=== PATIENT | male | born 1935 | race Caucasian/White ===

== ENCOUNTER 2016-03-27 13:26 | Emergency (ER) | payer OTHER ==
[~2016-03-27] VITALS: Ht 172.7 cm; Wt 113.0 kg
[~2016-03-27 13:26] MED LIST: BISOPROLOL-HCT1 EAC2 PO; FLOMAX0.4 MG PO; LO-DOSE ASPIRIN81 M1 PO; PROSCAR5 MG PO; ZESTRIL5 MG PO
[2016-03-27 14:13] LABS: ADD MIUA? YES; BILIRUBIN NEGATIVE; BLOOD LARGE; COLOR YELLOW ((YELLOW)); GLUCOSE (STRIP) NEGATIVE; KETONES NEGATIVE; LEUKOCYTES NEGATIVE; NITRITE NEGATIVE; PH, URINE 5.5 (5-8); PROTEIN (STRIP) NEGATIVE; SPECIFIC GRAVITY 1.014 (1.000-1.030); UROBILINOGEN 0.2 MG/DL (0.2-1.0)
[2016-03-27 14:32] LABS: BACTERIA NONE SEEN; CASTS NONE SEEN /LPF; CRYSTALS NONE SEEN; EPITHELIAL CELLS RARE; MUCUS NONE SEEN; RED BLOOD CELLS 30-40 /HPF (0-5); UCUL ADDED? NO; WHITE BLOOD CELLS 0-5 /HPF (0-5)
[2016-03-27 14:35] LABS: HEMATOCRIT 46.9 % (38.0-50.0); MCH 30.9 PG (29.0-34.0); MCHC 34.3 G/DL (30.0-36.0); MEAN PLAT.VOLUME 8.9 uM^3 (9.0-12.4); PLATELET COUNT 235 K/uL (156-360); RBC DIS.WIDTH-CV 12.8 % (11.8-14.6); RBC DIS.WIDTH-SD 42.1 % (39-53); RED BLOOD COUNT 5.21 M/uL (4.00-5.50)
[2016-03-27 14:37] LABS: WHITE BLOOD COUNT 12.3 K/uL (4.1-10.2)
[2016-03-27 14:43] LABS: CHLORIDE 104 mEq/L (99-109); POTASSIUM 4.8 mEq/L (3.7-5.4); SODIUM 136 mEq/L (136-147)
[2016-03-27 14:46] LABS: GLUCOSE 133 mg/dL (70-99)
[2016-03-27 14:47] LABS: ANION GAP 11 MEQ/L (2-14); TOTAL BILIRUBIN 0.6 mg/dL (0.0-1.0)
[2016-03-27 14:49] LABS: ALKALINE PHOSPHATASE 67 IU/L (3-129); GFR ESTIMATE (CALCULATED) > 59 mL/min/
[2016-03-27 14:50] LABS: UREA NITROGEN (BUN) 21 mg/dL (9-23)
[2016-03-27 15:22] VITALS: BP 115/61
== END 2016-03-27 15:39 | disposition home or self-care (01) ==
LOC: EME 13:26
PROVIDERS: Emergency Medicine
DX: R33.9 Retention of urine, unspecified (principal); C61 Malignant neoplasm of prostate; I10 Essential (primary) hypertension; Z79.82 Long term (current) use of aspirin; Z87.442 Personal history of urinary calculi; Z88.4 Allergy status to anesthetic agent; Z88.6 Allergy status to analgesic agent
CPT/HCPCS: 80053; 81003; 85027; 99281; 99284

== ENCOUNTER 2016-04-04 23:14 | Emergency (ER) | payer OTHER ==
[~2016-04-04] VITALS: Ht 177.8 cm; Wt 112.4 kg
[2016-04-05 00:18] LABS: ADD MIUA? YES; BILIRUBIN NEGATIVE; BLOOD MODERATE; COLOR YELLOW ((YELLOW)); GLUCOSE (STRIP) NEGATIVE; KETONES NEGATIVE; LEUKOCYTES NEGATIVE; NITRITE NEGATIVE; PROTEIN (STRIP) NEGATIVE; SPECIFIC GRAVITY 1.014 (1.000-1.030); UROBILINOGEN 0.2 MG/DL (0.2-1.0)
[2016-04-05 00:38] LABS: BACTERIA NONE SEEN; CASTS NONE SEEN /LPF; CRYSTALS NONE SEEN; EPITHELIAL CELLS NONE SEEN; MUCUS NONE SEEN; RED BLOOD CELLS 30-40 /HPF (0-5); UCUL ADDED? NO; WHITE BLOOD CELLS RARE /HPF (0-5)
[2016-04-05 00:47] LABS: HEMATOCRIT 46.3 % (38.0-50.0); MCH 31.5 PG (29.0-34.0); MCHC 34.6 G/DL (30.0-36.0); MCV 91.1 FL (86-99); MEAN PLAT.VOLUME 9.2 uM^3 (9.0-12.4); PLATELET COUNT 235 K/uL (156-360); RBC DIS.WIDTH-CV 13.2 % (11.8-14.6); RBC DIS.WIDTH-SD 43.3 % (39-53); RED BLOOD COUNT 5.08 M/uL (4.00-5.50); WHITE BLOOD COUNT 11.1 K/uL (4.1-10.2)
[2016-04-05 00:57] LABS: CHLORIDE 107 mEq/L (99-109); POTASSIUM 4.3 mEq/L (3.7-5.4); SODIUM 137 mEq/L (136-147)
[2016-04-05 00:59] LABS: GLUCOSE 133 mg/dL (70-99)
[2016-04-05 01:00] LABS: ANION GAP 10 MEQ/L (2-14)
[2016-04-05 01:03] LABS: GFR ESTIMATE (CALCULATED) > 59 mL/min/
[2016-04-05 01:04] LABS: UREA NITROGEN (BUN) 27 mg/dL (9-23)
[2016-04-05 02:40] VITALS: BP 148/81
== END 2016-04-05 02:37 | disposition home or self-care (01) ==
LOC: EME 23:14
PROC: 0T9B70Z Drainage of Bladder with Drainage Device, Via Natural or Artificial Opening (ICD-10-PCS; principal; 2016-04-04)
DX: R33.9 Retention of urine, unspecified (principal); I10 Essential (primary) hypertension; Z87.442 Personal history of urinary calculi; Z85.46 Personal history of malignant neoplasm of prostate; Z79.82 Long term (current) use of aspirin
CPT/HCPCS: 80048; 81003; 85027; 99281; 99284

== ENCOUNTER → 2016-04-30 | Outpatient (CLI) | payer MEDICARE, OTHER | END | disposition home or self-care (01) | LOC: CDC 08:13 | DX: Z01.810 Encounter for preprocedural cardiovascular examination (principal); R94.31 Abnormal electrocardiogram [ECG] [EKG]; I45.10 Unspecified right bundle-branch block | CPT/HCPCS: 93000 ==

== ENCOUNTER 2016-05-03 07:27 | Day surgery (SDC) | payer OTHER ==
[~2016-05-03] VITALS: Ht 175.3 cm; Wt 112.4 kg
[2016-05-03 09:08] VITALS: BP 149/77
[2016-05-03 14:20] VITALS: BP 143/83
[2016-05-03 16:08] VITALS: BP 143/83
[2016-05-03 19:58] VITALS: BP 129/72
[2016-05-04] VITALS: BP 119/69
[2016-05-04 03:58] VITALS: BP 123/67
[2016-05-04 08:51] VITALS: BP 119/69
== END 2016-05-04 13:12 | disposition home or self-care (01) ==
LOC: SDC 07:27 → 2SOUTH 08:00 → 2EASTP 08:00 → SDC 11:22 → 2EASTP 14:05 → SDC 15:03 → 2EASTP 05-04 13:12
PROVIDERS: Urology
DX: C61 Malignant neoplasm of prostate (principal); N21.0 Calculus in bladder; I10 Essential (primary) hypertension; M19.90 Unspecified osteoarthritis, unspecified site
CPT/HCPCS: 82365 90; 87077; 87086; 87186; 88305; 88341 TC; 88342 TC; G0378; J1580; J2405; J7050

== ENCOUNTER 2017-09-18 12:12 | Emergency (ER) | payer OTHER ==
[~2017-09-18] VITALS: Ht 177.8 cm; Wt 103.3 kg
[2017-09-18 12:54] LABS: HEMATOCRIT 39.4 % (38.0-50.0); HEMOGLOBIN 13.9 G/DL (12.5-16.6); MCH 31.5 PG (29.0-34.0); MCHC 35.3 G/DL (30.0-36.0); MCV 89.3 FL (86-99); PLATELET COUNT 102 K/uL (156-360); RBC DIS.WIDTH-CV 13.7 % (11.8-14.6); RBC DIS.WIDTH-SD 44.6 % (39-53); RED BLOOD COUNT 4.41 M/uL (4.00-5.50); WHITE BLOOD COUNT 4.7 K/uL (4.1-10.2)
[2017-09-18 13:04] LABS: CHLORIDE 103 mEq/L (99-109); POTASSIUM 4.3 mEq/L (3.7-5.4); SODIUM 136 mEq/L (136-147)
[2017-09-18 13:06] LABS: GLUCOSE 123 mg/dL (70-99); TOTAL PROTEIN 7.2 g/dL (6.4-8.3)
[2017-09-18 13:08] LABS: TOTAL BILIRUBIN 0.7 mg/dL (0.0-1.0)
[2017-09-18 13:10] LABS: ALKALINE PHOSPHATASE 1643 IU/L (3-129); CREATININE 1.2 mg/dL (0.6-1.3); GFR ESTIMATE (CALCULATED) > 59 mL/min/ (58.99-99999)
[2017-09-18 13:11] LABS: UREA NITROGEN (BUN) 25 mg/dL (9-23)
[2017-09-18 13:12] LABS: AST (GOT) 62 IU/L (2-34)
[2017-09-18 13:12] LABS: APPEARANCE SL.HAZY ((CLEAR)); BILIRUBIN NEGATIVE; BLOOD SMALL; COLOR YELLOW ((YELLOW)); GLUCOSE (STRIP) NEGATIVE; KETONES NEGATIVE; LEUKOCYTES NEGATIVE; NITRITE NEGATIVE; PROTEIN (STRIP) 30; SPECIFIC GRAVITY 1.025 (1.000-1.030); UROBILINOGEN 0.2 MG/DL (0.2-1.0)
[2017-09-18 13:13] LABS: ALT (GPT) 48 IU/L (3-49)
[2017-09-18 13:17] LABS: BACTERIA NONE SEEN /HPF; EPITHELIAL CELLS RARE /HPF; MUCUS 1+ /LPF; RED BLOOD CELLS 0-5 /HPF (0-5); UCUL ADDED? NO; WHITE BLOOD CELLS 0-5 /HPF (0-5)
[2017-09-18 15:33] VITALS: BP 138/66
== END 2017-09-18 15:34 | disposition home or self-care (01) ==
LOC: EME 12:12
DX: K59.00 Constipation, unspecified (principal); R10.9 Unspecified abdominal pain; Z85.46 Personal history of malignant neoplasm of prostate; C79.51 Secondary malignant neoplasm of bone; I45.10 Unspecified right bundle-branch block; I10 Essential (primary) hypertension; Z88.8 Allergy status to other drugs, medicaments and biological substances; Z87.442 Personal history of urinary calculi
CPT/HCPCS: 74176; 80053; 81003; 83605; 83690; 85027; 93005; 99281; 99285; J7030

== ENCOUNTER → 2017-09-29 | Outpatient (CLI) | payer OTHER | END | disposition home or self-care (01) | LOC: NUC 10:00 | DX: C79.51 Secondary malignant neoplasm of bone (principal) | CPT/HCPCS: 78306; A9503 ==